=== PATIENT | male | born 1975 | race Caucasian/White ===

== ENCOUNTER 2020-03-21 21:13 | Emergency (ER) | payer OTHER ==
[~2020-03-21] VITALS: Ht 165.1 cm; Wt 74.8 kg
[2020-03-21 21:15] VITALS: BP 136/87
--- NOTE | 2020-03-21 21:23 | NUR ---
[address] [place] [address] TO ER [facility]
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
--- NOTE | 2020-03-21 21:59 | NUR ---
Kervin Wynn [employer] swabs collected and handed to Jamilah [employer] Superintendent.
[2020-03-21 22:06] LABS: BASOPHILS % (AUTO) 0.5 % (0.0-2.0); EOSINOPHILS # (AUTO) 0.2 K/uL (0-0.4); EOSINOPHILS % (AUTO) 1.8 % (0.0-4.0); HEMATOCRIT 38.4 % (36-52); HEMOGLOBIN 12.8 g/dL (12.0-18.0); LYMPHOCYTES # (AUTO) 2.9 K/uL (2.0-11.5); MEAN CORPUSCULAR HEMOGLOBIN 27 pg (27-31); MEAN CORPUSCULAR HGB CONC 33 g/dL (33-37); MEAN CORPUSCULAR VOLUME 80.8 fL (80-94); MONOCYTES # (AUTO) 1.1 K/uL (0.8-1.0); MONOCYTES % (AUTO) 11.1 % (1.7-9.3); NEUTROPHILS # (AUTO) 5.4 K/uL (1.8-7.7); NEUTROPHILS % (AUTO) 56.6 % (42.2-75.2); PLATELET COUNT (AUTO) 210 K/uL (140-450); RED BLOOD CELL COUNT(AUTO) 4.75 MIL/uL (4.20-6.10); RED CELL DISTRIBUTION WIDTH 13.8 % (11.6-13.7); WHITE BLOOD COUNT (AUTO) 9.5 K/uL (4.8-10.8)
[2020-03-21 22:30] LABS: ALBUMIN 3.4 g/dL (3.4-5.0); ANION GAP 9.1 (8-16); ASPARTATE AMINOTRANSFERASE 22 U/L (15-37); CARBON DIOXIDE 27.7 mmol/L (21-32); CHLORIDE 107 mmol/L (98-107); CREATININE 1.5 mg/dL (0.6-1.3); GFR ARICAN-AMERICAN 66 mL/min (>90); GLUCOSE 109 mg/dL (74-106); POTASSIUM 3.8 mmol/L (3.5-5.1); SODIUM SERUM 140 mmol/L (136-145); TOTAL BILIRUBIN 0.2 mg/dL (0.0-1.0); UREA NITROGEN, BLOOD 25 mg/dL (7-18)
[2020-03-21 22:32] LABS: APPEARANCE,URINE CLEAR (CLEAR); BILIRUBIN,URINE NEGATIVE (NEGATIVE); BLOOD, URINE 3+ (NEGATIVE); COLOR,URINE YELLOW (YELLOW); LEUKOCYTE ESTERASE ,URINE NEGATIVE (NEGATIVE); NITRITE, URINE NEGATIVE (NEGATIVE); UGLUCOSE NEGATIVE (NEGATIVE)
[2020-03-21 22:34] LABS: ACETAMINOPHEN < 0.5 ug/ml (10-30); SALICYLATE < 2.8 mg/dL (2.8-20.0)
[2020-03-21 22:54] LABS: RBC,URINE TOO NUMEROUS TO COUN /HPF (0-5); WBC,URINE 0 /HPF (0-5)
--- NOTE | 2020-03-21 23:15 | NUR ---
PT LAYING IN BED WITH EYES CLOSED. VISIBLE CHEST RISE AND FALL NOTED. 1:[address] ALL NEEDS MET AT THIS TIME. WILL CONTINUE TO MONITOR.
[2020-03-21 23:41] LABS: BARBITURATE, URINE NEGATIVE ng/ml (NEG <=200); BENZODIAZEPINE, URINE NEGATIVE ng/mL (NEG <=200); CANNABINOID, URINE NEGATIVE ng/mL (NEG <=50); COCAINE, URINE NEGATIVE ng/mL (NEG <=300); OPIATE, URINE NEGATIVE ng/mL (NEG <=2000); PHENCYCLIDINE SCREEN,URINE NEGATIVE ng/mL (NEG <=25)
--- NOTE | 2020-03-22 00:38 | NUR ---
PER TELEPSYCH REQUEST INITIATED - CONNECT ID [id number]
--- NOTE | 2020-03-22 00:50 | NUR ---
PT S/W TELEPSYCH DOCTOR. [address].
--- NOTE | 2020-03-22 01:00 | NUR ---
REPORT GIVEN TO ELTON SZYMANSKI. TRANSFER OF CARE AT THIS TIME.
--- NOTE | 2020-03-22 02:25 | NUR ---
Pt resting in gurney, bed is locked and in lowest position, side rails x 2 for pt safety. Pt acting calm and quietly talking to himself. No acute distress noted.
--- NOTE | 2020-03-22 03:50 | NUR ---
PATIENT AMBULATED TO RESTROOM WITH STEADY GAIT.
--- NOTE | 2020-03-22 03:55 | NUR ---
PATIENT AMBULATED BACK TO BED FROM RESTROOM WITH NO DIFFICULTIES.
--- NOTE | 2020-03-22 04:10 | NUR ---
Lexus leslie in [facility], [place] - 03/22/20 at 0413 by [facility] PROVIDED WITH PICTURES AND DOCUMENTATION.
--- NOTE | 2020-03-22 06:29 | NUR ---
PATIENT FOUND SLEEPING IN SEMI-BURGOS'S POSITION ON BED. PATIENT BREATHING IS UNLABORED. PATIENT HAS EQUAL RISE AND FALL UPON RESPIRATION. BED LOCKED IN LOWEST POSITION. WILL CONTINUE TO MONITOR.
--- NOTE | 2020-03-22 07:12 | NUR ---
REPORTED PROVIDED TO [facility]O CON[facility] FOR TRANSFER OF CARE. Addendum: 03/22/20 at 0714 by [facility] REPORTED PROVIDED TO SHERYL CONDE FOR TRANSFER OF CARE.
--- NOTE | 2020-03-22 07:56 | NUR ---
Received report. Per Bentley, packet was faxed to [facility], [facility], [place]. [facility] aware patient is pending PCR Covid results.
--- NOTE | 2020-03-22 09:39 | NUR ---
PT ALERT AND AWAKE, BREATHING EVEN AND UNLABORED. NO DISTRESS NOTED. PT TALKING TO SELF
[2020-03-22] MEDS ORDERED: OLANZapine 5 MG TAB PO ONE (09:45)
--- NOTE | 2020-03-22 13:46 | NUR ---
PCR Covid results faxed to Chelle at [facility].
--- NOTE | 2020-03-22 14:27 | NUR ---
Patient accepted to [facility], Room 15-A, under Dr. Lyon. For report please call [phone].
--- NOTE | 2020-03-22 15:35 | NUR ---
Report given to ELTON Obrien at [facility]. Call back with
[2020-03-22 17:17] VITALS: BP 138/93
--- NOTE | 2020-03-22 17:18 | NUR ---
Patient to be transferred to [facility]. Is being transferred due to higher level of care. Receiving facility has accepting physician and available space. ER physician has signed transfer form. Patient or responsible libertarian has agreed to transfer and signed form. Patient belongings inventoried and will be sent with patient. Copy of nursing notes, lab reports, EKG, Physicians Orders and X-rays to be sent with patient. Report called to ELTON Obrien at receiving facility. [facility] ambulance service has been called for transfer.
== END 2020-03-22 17:19 ==
LOC: MED 21:13
DX: F79 Unspecified intellectual disabilities (principal); F31.9 Bipolar disorder, unspecified; J45.909 Unspecified asthma, uncomplicated; Z20.828 Contact with and (suspected) exposure to other viral communicable diseases
CPT/HCPCS: 36415; 80053; 80305; 81001; 85025; 87426; 99285; G0480; G0482; U0003